=== PATIENT | male | born 1990 | race Caucasian/White ===

== ENCOUNTER 2018-05-06 02:18 | Emergency (ER) | payer SELFPAY ==
[2018-05-06 02:51] VITALS: BMI 27.8
[2018-05-06 02:54] VITALS: BP 121/75; PULSE 68; RESP 18; TEMP 98.2; O2SAT 99
--- NOTE | 2018-05-06 04:44 | ED PDOC ---
HPI:Nausea, Vomiting, Diarrhea Time Seen by Provider: 05/06/18 03:10 Chief Complaint (Nursing): Abdominal Pain Chief Complaint (Provider): Abdominal Pain History Per: Patient History/Exam Limitations: no limitations Onset/Duration Of Symptoms: Days (x2) Current Symptoms Are (Timing): Still Present Additional Complaint(s): 27 year old male presents to the emergency department with complaints of diarrhea, nausea, vomiting, fever, and chills since 05/04/18. Patient has 2 sick children at home with similar symptoms - oldest child is also being evaluated in ED. He reports having poor appetite but able to tolerate food and liquids. PCP: none provided Past Medical History Reviewed: Historical Data, Nursing Documentation, Vital Signs Vital Signs: Last Vital Signs Temp 98.2 F 05/06/18 02:51 Pulse 68 05/06/18 02:51 Resp 18 05/06/18 02:51 BP 121/75 05/06/18 02:51 Pulse Ox 99 05/06/18 02:51 - Medical History PMH: No Chronic Diseases - Family History Family History: States: Unknown Family Hx - Allergies Allergies/Adverse Reactions: Allergies Allergy/AdvReac Type Severity Reaction Status Date / Time No Known Allergies Allergy Verified 05/06/18 02:51 Review of Systems ROS Statement: Except As Marked, All Systems Reviewed And Found Negative Constitutional: Positive for: Fever, Chills Gastrointestinal: Positive for: Nausea, Vomiting, Diarrhea, Other (tolerating PO). Negative for: Abdominal Pain Physical Exam - Reviewed Nursing Documentation Reviewed: Yes Vital Signs Reviewed: Yes - Physical Exam Appears: Positive for: Well, Non-toxic, No Acute Distress Head Exam: Positive for: ATRAUMATIC, NORMAL INSPECTION, NORMOCEPHALIC Skin: Positive for: Normal Color Eye Exam: Positive for: Normal appearance ENT: Positive for: Normal ENT Inspection Neck: Positive for: Normal Cardiovascular/Chest: Positive for: Regular Rate, Rhythm, Chest Non Tender Respiratory: Positive for: Normal Breath Sounds. Negative for: Respiratory Distress Gastrointestinal/Abdominal: Positive for: Normal Exam, Soft. Negative for: Tenderness Extremity: Positive for: Normal ROM (upper/lower) Neurologic/Psych: Positive for: Alert, Oriented - ECG O2 Sat by Pulse Oximetry: 99 (RA) Pulse Ox Interpretation: Normal Medical Decision Making Medical Decision Making: Time: 312 Initial Plan: * Imodium 4mg PO * Motrin 800mg PO * Influenza AB Time: 0450 --Upon provider reevaluation, patient is medically stable, reports improvement in symptoms, and requires no further treatment in the ED at this time. Patient will be discharged home. Counseling was provided and all questions were answered regarding diagnosis. There is agreement to discharge plan. Return precautions discussed. Clinical Impression: Diarrhea; Abdominal pain Scribe Attestation: Documented by Leatha Landers, acting as a scribe for Sandie Newton MD. Provider Scribe Attestation: All medical record entries made by the Scribe were at my direction and personally dictated by me. I have reviewed the chart and agree that the record accurately reflects my personal performance of the history, physical exam, medical decision making, and the department course for this patient. I have also personally directed, reviewed, and agree with the discharge instructions and disposition. Disposition - Clinical Impression Clinical Impression: Abdominal pain, Diarrhea - Patient ED Disposition Is Patient to be Admitted: No Counseled Patient/Family Regarding: Studies Performed, Diagnosis - Disposition Disposition: Routine/Home Disposition Time: 04:50 Condition: IMPROVED Additional Instructions: Increase rest and drink more water while symptoms last. Follow up with primary medical doctor. Instructions: Diarrhea in Adolescents and Adults, Acute Abdomen (Belly Pain), Viral Gastroenteritis, Adult (DC) Forms: [employer] (Spanish) Print Language: HUNGARIAN
== END 2018-05-06 04:52 | disposition home or self-care (01) ==
LOC: H.ER 02:18
DX: R10.9 Unspecified abdominal pain (principal); R19.7 Diarrhea, unspecified